=== PATIENT | male | born 1980 | race Caucasian/White ===

== ENCOUNTER 2017-11-10 17:33 | Emergency (ER) | payer SELFPAY ==
[2017-11-10] MEDS ORDERED: Proparacaine 0.5% Opth 15 ML BOT ONE (18:02)
[2017-11-10] MEDS ORDERED: Fluorescein Opthalmic Strip ONE (18:02)
== END 2017-11-10 18:43 | disposition home or self-care (01) ==
LOC: ERS 17:33
DX: T15.12XA Foreign body in conjunctival sac, left eye, initial encounter (principal); T15.02XA Foreign body in cornea, left eye, initial encounter; F17.210 Nicotine dependence, cigarettes, uncomplicated; W22.8XXA Striking against or struck by other objects, initial encounter
CPT/HCPCS: 65205

== ENCOUNTER 2020-03-12 13:40 | Emergency (ER) | payer SELFPAY ==
[2020-03-12] MEDS ORDERED: Proparacaine 0.5% Opth 15 ML BOT ONE (13:53)
[2020-03-12] MEDS ORDERED: Fluorescein Opthalmic Strip ONE (13:53)
== END 2020-03-12 14:12 | disposition home or self-care (01) ==
LOC: ERS 13:40
DX: S05.01XA Injury of conjunctiva and corneal abrasion without foreign body, right eye, initial encounter (principal); X58.XXXA Exposure to other specified factors, initial encounter
CPT/HCPCS: 99282